=== PATIENT | female | born 1995 | race Caucasian/White ===

== ENCOUNTER 2019-08-08 03:37 | Emergency (ER) | payer OTHER, SELFPAY ==
[2019-08-08 03:41] VITALS: BP 124/78; PULSE 120; RESP 16; TEMP 36.3; O2SAT 100
--- NOTE | 2019-08-08 03:56 | ED.ABDPAIN ---
HPI - Abdominal Pain General Chief Complaint: Abdominal Pain Stated Complaint: n/v/d for 2 hours Time Seen by Provider: 08/08/19 03:48 Source: patient Mode of arrival: ambulatory Limitations: no limitations History of Present Illness HPI narrative: 23 yo female who presents with c/o nausea, vomiting and diarrhea . PAtient reports she has had intermittent epigastric pain for 1 week. She states this pain radiates to her back occasionally as well. She has not taken any thing for this pain. She has come to [facility] because she develop nausea, vomiting and diarrhea 2 hours ago and she feels dehydrated. She reports 10 episodes of watery nonbloody diarrhea. She has not had any episodes of emesis for the past hour. She drank some pedialyte on the way to hospital and she has been able to keep it down. MD elicited complaint: abdominal pain Onset (ago): week(s) Pain Consistency: intermittent Location: epigastric Migration to: other (back) Exacerbating factors: nothing Associated symptoms: nausea, vomiting and diarrhea Related Data Date of Last Menstrual Period: 08/03/19 Allergies Allergy/AdvReac Type Severity Reaction Status Date / Time No Known Allergies Allergy Mild Unverified 11/01/18 15:31 Review of Systems Review of Systems: All systems reviewed & are unremarkable except as noted in HPI and below Constitutional: Constitutional: Denies chills, Denies fever(s) and Reports weakness ENT: Denies nasal congestion and Denies sore throat Cardiovascular: Cardiovascular: Denies chest pain Respiratory: Respiratory: Denies chest congestion, Denies cough and Denies dyspnea Gastrointestinal: Gastrointestinal: Reports abdominal pain, Reports diarrhea, Reports nausea and Reports vomiting Genitourinary: Genitourinary: Denies hematuria PMFSH Past Medical History Medical History (Updated 08/08/19 @ 05:32 by Clair Pollard MD) No significant medical problems Surgical History Surgical History (Updated 08/08/19 @ 04:00 by Clair Pollard MD) History of tonsillectomy Social History Social History (Updated 08/08/19 @ 04:00 by Clair Pollard MD) Smoking status: Never smoker Alcohol intake: former Substance use: never Exam Narrative: Exam Narrative: GENERAL: Well-appearing, well-nourished, and in no acute distress. HEAD: Normocephalic, atraumatic EYES: PERRLA and EOMI, conjunctiva clear without discharge THROAT:Mucous membranes moist, Oropharynx normal without erythema, exudate, peritonsillar swelling or fluctuance NECK: Supple, without lymphadenopathy or mass RESPIRATORY: No respiratory distress, Airway patent, Respirations non-labored, Clear to auscultation without rales, rhonchi or wheeze HEART: Regular rate and rhythm. No murmur heard. Normal peripheral pulses. ABDOMEN: Soft, nontender, nondistended, normal active bowel sounds. No masses. No rebound or guarding, No organomegaly. EXTREMITIES: No edema, normal strength with full range of motion. SKIN: Warm, dry, normal color without rash NEURO: Alert and oriented x3. CN 2-12 grossly intact. No focal deficits. PSYCH: Normal mood and affect. Course Reevaluation(s) Reevaluation #1: PAtient states she feels better. she has no nausea or vomiting. Labs are unremarkable. She was able to tolerate PO. Date: 08/08/19 Time: 05:29 Vital Signs Vital signs: Vital Signs Temperature 97.3 F L 08/08/19 03:41 Pulse Rate 120 H 08/08/19 03:41 Respiratory Rate 16 08/08/19 03:41 Blood Pressure 124/78 08/08/19 03:41 Pulse Oximetry 100 08/08/19 03:41 Temperature 97.3 F L 08/08/19 03:41 Pulse Rate 71 08/08/19 05:48 Respiratory Rate 17 08/08/19 05:48 Blood Pressure 123/70 08/08/19 05:48 Pulse Oximetry 98 08/08/19 05:48 MDM - Abdominal Pain Lab Data Result diagrams: 08/08/19 04:01 08/08/19 04:01 Labs: Lab Results 08/08/19 08/08/19 08/08/19 Range/Units 04:01 04:01 04:23 WBC 9.6
[2019-08-08 04:10] LABS: Basophils Percent Auto 0.2 % (0.2-1.2); Eosinophils Percent Auto 0.3 % (0-4.4); Hematocrit 44.5 % (37.0-47.0); Hemoglobin 15.9 g/dL (12.0-15.0); Immature Granulocyte Absolute 0.02 K/mm3 (0.00-0.031); Immature Granulocyte Percent A 0.2 % (0-0.5); Lymphocytes Absolute Auto 0.44 K/mm3 (0.9-3.2); Lymphocytes Percent Auto 4.6 % (18.3-44.2); Mean Corpuscular HGB Conc 35.7 g/dl (32-36); Mean Corpuscular Hemoglobin 33.1 pg (26-34); Mean Corpuscular Volume 92.5 fl (80-100); Mean Platelet Volume 11.8 fl (7.4-10.4); Monocytes Absolute Auto 0.5 K/mm3 (0.1-0.6); Neutrophils Absolute Auto 8.6 K/mm3 (1.3-6.7); Neutrophils Percent Auto 89.7 % (45.5-73.1); Platelet Count Result 212 k/mm3 (150-375); Red Blood Count 4.81 M/mm3 (4.2-5.4); Red Cell Distribution Width 11.3 % (11.5-14.5); White Blood Count 9.6 K/mm3 (4.5-10.0)
[2019-08-08 04:20] LABS: Alanine Aminotransferase 9 U/L (4-35); Alkaline Phosphatase 51 U/L (38-126); Aspartate Amino Transferase 19 U/L (14-36); Blood Urea Nitrogen 16 mg/dL (7-17); Calcium 9.7 mg/dL (8.4-10.2); Carbon Dioxide 28 mmol/L (22-30); Chloride 103 mmol/L (98-107); Estimated Glomerular Filt Rate > 60; Glucose 120 mg/dL (65-105); Lipase 92 U/L (23-300); Potassium 3.7 mmol/L (3.4-5.0); Sodium 138 mmol/L (137-145)
[2019-08-08] MEDS: PANTOPRAZOLE SODIUM IV 40 MG VIAL IV PUSH (04:24)
[2019-08-08] MEDS: ONDANSETRON INJ 4 MG/2 ML VIAL IV PUSH (04:24)
[2019-08-08] MEDS: LACTATED RINGERS 1,000 ML 999 ML IV CONT ×2 (04:24)
[2019-08-08 04:37] LABS: Add Urine Microscopic? YES; Appearance Urine Cloudy (Clear); Bacteria Urine Trace /hpf; Bilirubin Urine Negative (Negative); Blood Urine 1+ (Negative); Color Urine Yellow (Yellow); Glucose Urine UA Negative (Negative); Ketones Urine Trace mg/dL (Negative); Leukocyte Esterase Ur 2+ LEU/UL (Negative); Mucus Urine Heavy /lpf; Nitrate Urine Negative (Negative); Protein Urine 1+ mg/dL (Negative); Squamous Epithelial Cell Urine Many /hpf (Few); Urobilinogen Urine Negative mg/dL (<2.0)
[2019-08-08 05:03] LABS: Specific Grav Ur 1.032 (1.001-1.035)
[2019-08-08 05:48] VITALS: BP 123/70; PULSE 71; RESP 17; O2SAT 98
== END 2019-08-08 05:50 | disposition home or self-care (01) ==
PROVIDERS: Emergency Provider General Practice
DX: K52.9 Noninfective gastroenteritis and colitis, unspecified (principal); E86.0 Dehydration
CPT/HCPCS: 36415; 80053; 81001; 81025; 83690; 85025; 87086; 87088; 96361; 96374; 96375; 99284; C9113; J2405; J7120

== ENCOUNTER 2020-03-09 04:24 | Emergency (ER) | payer OTHER, SELFPAY ==
[2020-03-09 04:28] VITALS: BP 122/69; PULSE 93; RESP 14; TEMP 37; O2SAT 100
[2020-03-09 04:53] LABS: Basophils Percent Auto 0.3 % (0.2-1.2); Eosinophils Percent Auto 0.3 % (0-4.4); Hematocrit 41.9 % (37.0-47.0); Hemoglobin 15.4 g/dL (12.0-15.0); Immature Granulocyte Absolute 0.01 K/mm3 (0.00-0.031); Immature Granulocyte Percent A 0.2 % (0-0.5); Lymphocytes Percent Auto 26.2 % (18.3-44.2); Mean Corpuscular HGB Conc 36.8 g/dl (32-36); Mean Corpuscular Volume 92.5 fl (80-100); Monocytes Absolute Auto 0.6 K/mm3 (0.1-0.6); Monocytes Percent Auto 9.6 % (2.6-8.5); Neutrophils Absolute Auto 4.1 K/mm3 (1.3-6.7); Neutrophils Percent Auto 63.4 % (45.5-73.1); Platelet Count Result 216 k/mm3 (150-375); Red Blood Count 4.53 M/mm3 (4.2-5.4); Red Cell Distribution Width 11.1 % (11.5-14.5); White Blood Count 6.5 K/mm3 (4.5-10.0)
--- NOTE | 2020-03-09 04:53 | ED.NAVMDI ---
HPI - Nausea/Vomiting/Diarrhea General Chief complaint: Nausea/Vomiting/Diarrhea Stated complaint: threw up black Time Seen by Provider: 03/09/20 04:36 History of Present Illness HPI Narrative: 24 yo female at approximately 6 weeks gestation presents to the ED for vomiting and diarrhea. She reports that she has been sufferig from morning sickness for the past few days. Tonight she became cncerned because her vomiting was black. She does admit to drinking grape gatorade prior to vomiting. No weakness, numness, abdominal pain, vaginal bleeding/discharge. Related Data Allergies Allergy/AdvReac Type Severity Reaction Status Date / Time No Known Allergies Allergy Mild Verified 03/09/20 04:34 Review of Systems Review of Systems: All systems reviewed & are unremarkable except as noted in HPI and below Constitutional: Constitutional: Denies chills and Denies fever(s) Cardiovascular: Cardiovascular: Denies chest pain Respiratory: Respiratory: Denies dyspnea Gastrointestinal: Gastrointestinal: Denies abdominal pain, Reports diarrhea, Reports nausea and Reports vomiting Genitourinary: Genitourinary: Denies abnormal vaginal bleeding, Denies hematuria, Denies dysuria and Denies vaginal discharge Neurologic: Reports dizziness, Denies syncope and Denies weakness PMFSH Past Medical History Medical History No significant medical problems Surgical History Surgical History History of tonsillectomy Social History Social History Smoking status: Never smoker Alcohol intake: former Substance use: never Exam Const: General: healthy appearing, no acute distress and alert Orientation/consciousness: patient oriented x3 HENMT: Mouth: Yes dry mucous membranes Neck: Neck: normal visual inspection and no lymphadenopathy Chest: Chest palpation & inspection: no tenderness Resp: Effort & Inspection: normal respiratory effort Auscultation: clear to auscultation bilaterally, no rales, no rhonchi and no wheezes Cardio: Jugular venous distension: no JVD Rate: regular rate Rhythm: regular rhythm Heart sounds: no murmurs GI: Inspection: non-distended GI Palp: Yes Soft to palpation and No Tenderness to palpation present (GI) Skin: General skin exam: normal color Neuro: General: patient oriented x3 and moves all extremities Speech: normal speech Extrem: General: no edema Psych: Appearance: well kempt Affect: normal affect Course Vital Signs Vital signs: Vital Signs Temperature 37.0 C 03/09/20 04:28 Pulse Rate 93 03/09/20 04:28 Respiratory Rate 14 03/09/20 04:28 Blood Pressure 122/69 03/09/20 04:28 Pulse Oximetry 100 03/09/20 04:28 Temperature 37.0 C 03/09/20 04:28 Pulse Rate 93 03/09/20 04:28 Respiratory Rate 14 03/09/20 04:28 Blood Pressure 122/69 03/09/20 04:28 Pulse Oximetry 100 03/09/20 04:28 MDM - Nausea/Vomiting/Diarrhea MDM Narrative Medical decision making narrative: Feeling better after fluids. Labs reassuring. Tolerating PO. Medical Records Attestation: I reviewed the patient's medical records. Lab Data Attestation: I reviewed the patient's lab results. Result diagrams: 03/09/20 04:46 03/09/20 04:46 Labs: Lab Results 03/09/20 03/09/20 03/09/20 Range/Units 04:46 04:46 04:46 WBC 6.5 (4.5-10.0) K/mm3 RBC 4.53 (4.2-5.4) M/mm3 Hgb 15.4 H (12.0-15.0) g/dL Hct 41.9 (37.0-47.0) % MCV 92.5 (80-100) fl MCH 34.0 (26-34) pg MCHC 36.8 H (32-36) g/dl RDW 11.1 L (11.5-14.5) % Plt Count 216 (150-375) k/mm3 MPV 11.0 H (7.4-10.4) fl Immature Gran % (Auto) 0.2 (0-0.5) % Neut % (Auto) 63.4 (45.5-73.1) % Lymph % (Auto) 26.2 (18.3-44.2) % [place] % (Auto) 9.6 H (2.6-8.5) % Eos % (Auto) 0.3 (0-4.4)
[2020-03-09] MEDS: DEXTROSE 5%/0.45% SOD CHL 1,000 ML 1000 ML IV CONT (05:00)
[2020-03-09 05:01] LABS: Add Urine Microscopic? YES; Appearance Urine Cloudy (Clear); Bilirubin Urine Negative (Negative); Blood Urine Negative (Negative); Color Urine Yellow (Yellow); Glucose Urine UA Negative (Negative); Ketones Urine 1+ mg/dL (Negative); Leukocyte Esterase Ur Trace LEU/UL (Negative); Mucus Urine Heavy /lpf; Nitrate Urine Negative (Negative); Protein Urine 1+ mg/dL (Negative); Specific Grav Ur 1.025 (1.001-1.035); Squamous Epithelial Cell Urine Many /hpf (Few); Urobilinogen Urine Negative mg/dL (<2.0)
[2020-03-09] MEDS: METOCLOPRAMIDE HCL INJ 10 MG/2 ML VIAL IV PUSH (05:01)
[2020-03-09 05:07] LABS: Alanine Aminotransferase 10 U/L (4-35); Alkaline Phosphatase 46 U/L (38-126); Anion Gap 12 mmol/L (8-16); Aspartate Amino Transferase 21 U/L (14-36); Bilirubin,Total 1.1 mg/dL (0.2-1.3); Blood Urea Nitrogen 7 mg/dL (7-17); Calcium 9.7 mg/dL (8.4-10.2); Carbon Dioxide 25 mmol/L (22-30); Chloride 100 mmol/L (98-107); Estimated CRCL calculation 102 ml/min; Estimated Glomerular Filt Rate > 60; Glucose 110 mg/dL (65-105); Potassium 3.8 mmol/L (3.4-5.0); Sodium 137 mmol/L (137-145)
[2020-03-09 06:13] VITALS: BP 123/64; PULSE 84; RESP 16; TEMP 36.7; O2SAT 100
== END 2020-03-09 06:14 | disposition home or self-care (01) ==
PROVIDERS: Emergency Provider Emergency Medicine
DX: O21.9 Vomiting of pregnancy, unspecified (principal); Z3A.01 Less than 8 weeks gestation of pregnancy
CPT/HCPCS: 36415; 80053; 81001; 85025; 96361; 96374; 99284; J2765

== ENCOUNTER 2020-10-08 11:05 | Outpatient (RCR) | payer OTHER, SELFPAY ==
[2020-09-11 10:28] VITALS: BP 105/66
[2020-09-17 10:33] LABS: Glucose Point of Care 108 (65-105)
[2020-09-17 11:11] VITALS: BP 99/67; PULSE 104
[2020-09-20 11:19] VITALS: BP 102/68; PULSE 108
[2020-09-24 13:03] VITALS: BP 106/71; PULSE 104
[2020-10-01 11:16] VITALS: BP 109/72; PULSE 90
--- NOTE | ~2020-10-08 | US_ITS ---
US OB BPP wo non-stress DATE: 09/04/2020 11:22 INDICATION: Gestational diabetes mellitus TECHNIQUE: Real-time imaging and Doppler analysis COMPARISON: None FINDINGS: Live palmer intrauterine gestation, fetus in longitudinal lie, vertex presentation. Feta l heart rate of 144 bpm. Anterior placenta. Subjectively normal amount of amniotic fluid. Amniotic fluid pocket a 3.1 cm is identified. Three-ves nitish umbilical cord. BIOPHYSICAL PROFILE reported by emergency room technician: breathin out of 2 movement: 2 out of 2 tone: 2 out of 2 Amniotic fluid pocket: 2 out of 2 Total score: 8 out of 8 IMPRESSION: Normal biophysical profile score of 8 out of 8 Reviewed, dictated and finalized at [facility]. Reviewed, dictated and finalized at location [facility].
--- NOTE | ~2020-10-08 | US_ITS ---
EXAMINATION: US OB BPP wo non-stress DATE: 09/17/2020 10:59 INDICATION: Gestational diabetes third trimester TECHNIQUE: Real-time pelvic ultrasound was performed. The interpreting radiologist was not present fo r the study. COMPARISON: 09/04/2020 FINDINGS: There is a single living fetus in vertex presentation. The placenta is anterior/fundal. heart r ate is 157 beats per minute (bpm). Biophysical profile performed by the technologist: breathing (30 sec sustained breathing in 30 minutes): 2 out of 2 movement (3 gross body movements in 30 minutes): 2 out of 2 tone (one episode of fqqlcez-kehabutbv-tzmhtje limb movement): 2 out of 2 Amniotic fluid pocket (2 cm): 2 out of 2 Total score: 8 out of 8 IMPRESSION: 1. Single living fetus in vertex presentation. 2. Biophysical profile 8 out of 8. Reviewed, dictated and finalized at location [facility].
[2020-10-08 11:42] VITALS: BP 107/66; PULSE 106
== END 2020-10-24 07:43 | disposition home or self-care (01) ==
LOC: ANHOBOP 11:05
PROVIDERS: Visit Provider Obstetrics & Gynecology
DX: O24.419 Gestational diabetes mellitus in pregnancy, unspecified control (principal); Z3A.33 33 weeks gestation of pregnancy; Z3A.34 34 weeks gestation of pregnancy; Z3A.35 35 weeks gestation of pregnancy; Z3A.36 36 weeks gestation of pregnancy; Z3A.37 37 weeks gestation of pregnancy; Z3A.38 38 weeks gestation of pregnancy
CPT/HCPCS: 59025; 76819; 82948

== ENCOUNTER 2020-10-22 06:29 | Inpatient (IN) | payer OTHER, SELFPAY ==
[2020-10-22] VITALS (109 sets, daily range): BP systolic 37–148; BP diastolic 24–119; PULSE 54–203; RESP 17; TEMP 36.3–37.1; O2SAT 100; BMI 30.4
[2020-10-22 07:17] LABS: Glucose Point of Care 108 mg/dl (65-105)
[2020-10-22] MEDS: OXYTOCIN 30 UNITS/NS 500 ML 30 UNITS/500 ML BAG IV CONT (07:22)
[2020-10-22] MEDS: LACTATED RINGERS 1,000 ML 125 ML IV CONT ×3 (07:22→15:47)
[2020-10-22 07:39] LABS: Basophils Percent Auto 0.2 % (0.2-1.2); Eosinophils Percent Auto 0.6 % (0-4.4); Hematocrit 32.6 % (37.0-47.0); Hemoglobin 10.9 g/dL (12.0-15.0); Immature Granulocyte Absolute 0.05 K/mm3 (0.00-0.031); Immature Granulocyte Percent A 0.8 % (0-0.5); Lymphocytes Absolute Auto 1.25 K/mm3 (0.9-3.2); Lymphocytes Percent Auto 19.1 % (18.3-44.2); Mean Corpuscular HGB Conc 33.4 g/dl (32-36); Mean Corpuscular Hemoglobin 30.5 pg (26-34); Mean Corpuscular Volume 91.3 fl (80-100); Mean Platelet Volume 10.9 fl (7.4-10.4); Monocytes Absolute Auto 0.7 K/mm3 (0.1-0.6); Monocytes Percent Auto 10.1 % (2.6-8.5); Neutrophils Absolute Auto 4.6 K/mm3 (1.3-6.7); Neutrophils Percent Auto 69.2 % (45.5-73.1); Platelet Count Result 166 k/mm3 (150-375); Red Blood Count 3.57 M/mm3 (4.2-5.4); Red Cell Distribution Width 12.9 % (11.5-14.5); White Blood Count 6.6 K/mm3 (4.5-10.0)
--- NOTE | 2020-10-22 07:55 | LDADM ---
This patient, Melani Newman, was admitted to Labor/Delivery/Recovery 103 on 10/22/20 at 06:29. Plans for labor, pain management and were discussed with patient. Patient/family oriented to hospital policies and general routines including ID bracelet, bed and alarms, visiting hours, pain management, procedures, bathroom and other care routines, personal items, smoking policy, room service/diet and guest tray routines, security routines, and visiting hours. Patient/Family are encouraged to report perceived risks to care and to ask questions if they do not understand what they are told or what they should do. See OBIX for further documentation.
[2020-10-22 11:01] LABS: Glucose Point of Care 73 mg/dl (65-105)
--- NOTE | 2020-10-22 11:31 | PM.IMHP ---
H&P: HPI History of Present Illness Date/Time: 10/22/20 11:31 Melani is a 25yo @ 39.2wks (JULIA [birth year]) who presents for IOL. She has gestational diabetes on insulin. She has been undergoing routine care. Good movement. She denies ctx, VB, LOF on admission. Her is complicated by: - A2 GDM on insulin - LGA fetus; EFW 4000g - CMV non-immune Chief Complaint: induction of labor Review of Systems Review of Systems: All systems reviewed & are unremarkable except as noted in HPI and below (HPI) [facility] Past Medical History Medical History No significant medical problems Surgical History Surgical History History of tonsillectomy Family History Family History Other No pertinent family history Social History Social History Smoking status: Never smoker Second hand tobacco smoke exposure: Yes Alcohol intake: former Substance use: never Gender identity (if verbalized by the patient): Female Spiritual care concerns: No Meds Home Medications and Allergies Home Medications Medication Instructions Recorded Confirmed Type PNV cmb#95-ferrous fumarate-FA 1 tablet PO DAILY 09/24/20 09/24/20 History [] insulin glargine [Lantus Solostar 15 unit SUBCUT HS 09/24/20 09/24/20 History U-100 Insulin] Allergies Allergy/AdvReac Type Severity Reaction Status Date / Time No Known Allergies Allergy Mild Verified 03/09/20 04:34 Vital Signs Vital Signs - 24 hr 10/22/20 07:27 10/22/20 08:05 10/22/20 08:16 Temperature 36.6 C Pulse Rate 69 73 Blood Pressure 104/72 109/76 10/22/20 08:31 10/22/20 08:46 10/22/20 09:01 Temperature Pulse Rate 76 90 82 Blood Pressure 107/74 107/79 111/74 10/22/20 09:16 10/22/20 09:31 10/22/20 09:46 Temperature Pulse Rate 76 77 81 Blood Pressure 107/74 111/74 112/71 10/22/20 10:01 10/22/20 10:16 10/22/20 10:30 Temperature 36.6 C Pulse Rate 93 82 Blood Pressure 118/72 117/73 10/22/20 10:31 10/22/20 10:46 10/22/20 11:01 Temperature Pulse Rate 80 84 88 Blood Pressure 116/72 117/80 98/85 L 10/22/20 11:16 10/22/20 11:31 Temperature Pulse Rate 82 82 Blood Pressure 105/73 107/74 Exam Const: General: cooperative, healthy appearing, comfortable and no acute distress Resp: Effort & Inspection: normal respiratory effort and able to speak in complete sentences Cardio: Rate: regular rate GI: Inspection: normal to inspection GI Palp: No abdominal tenderness and Yes Soft to palpation : Other: FHT's: 140's/ mod reva/ + accels no decels TOCO: ctx's q 2min Cervix: 3/thick/-2 Membranes: AROM, clear 1145 Pitocin: 14mu Position: cephalic Skin: General skin exam: normal color Neuro: General: patient oriented x3 Extrem: General: normal to inspection Psych: Appearance: grossly normal Affect: normal affect Attitude: cooperative H&P: Results Labs Labs: Short CBC 10/22/20 Range/Units 06:49 WBC 6.6 (4.5-10.0) K/mm3 Hgb 10.9 L D (12.0-15.0) g/dL Hct 32.6 L (37.0-47.0) % Plt Count 166 (150-375) k/mm3 Assessment and Plan Assessment and plan (1) Gestational diabetes mellitus (GDM) affecting second : Code(s): O24.419 - Gestational diabetes mellitus in , unspecified control Status: Acute Additional Plan - Admitted to L&D for IOL - Pitocin per protocol; AROM, clear this exam - Continuous monitoring; FHT reassuring currently - EFW 4000g; pt has h/o 9lb w/ prior baby without complications-- discussed possibility of shoulder dystocia as US are not 100% correct-- will continue to monitor labor curve closely - Anesthesia consult PRN pain - FS q4h while in latent phase; FS q2h while in active labor
--- NOTE | 2020-10-22 11:54 | WPDHPUPDATE1 ---
History and Physical Update Update Date/Time: 10/22/20 11:54 History and Physical has been reviewed, including an updated exam of the patient. There are NO changes in the patient's condition. Risks, benefits, and alternatives have been discussed and questions answered. Patient agrees to proceed with procedure.
--- NOTE | 2020-10-22 13:04 | WPDANESEPP ---
Anes - Eval Pre Procedure Procedure: labor epidural Date/Time: 10/22/20 13:04 Preop Diagnosis: labor pain Pre Op Diagnosis: Induction of Labor Patient Data Age: 25 Gender: F Height: 5 ft 3 in Weight: 78 kg Last Vital Signs Temp 36.8 C 10/22/20 12:35 Pulse 88 10/22/20 13:02 BP 105/63 10/22/20 13:02 Allergies Allergy/AdvReac Type Severity Reaction Status Date / Time No Known Allergies Allergy Mild Verified 03/09/20 04:34 Home Medications Medication Instructions Recorded Confirmed Type PNV cmb#95-ferrous fumarate-FA 1 tablet PO DAILY 09/24/20 09/24/20 History [] insulin glargine [Lantus Solostar 15 unit SUBCUT HS 09/24/20 09/24/20 History U-100 Insulin] Laboratory Tests 10/22/20 10/22/20 10/22/20 06:49 06:49 06:49 WBC 6.6 K/mm3 K/mm3 (4.5-10.0) RBC 3.57 M/mm3 L M/mm3 (4.2-5.4) Hgb 10.9 g/dL L D g/dL (12.0-15.0) Hct 32.6 % L % (37.0-47.0) MCV 91.3 fl fl (80-100) MCH 30.5 pg pg (26-34) MCHC 33.4 g/dl g/dl (32-36) RDW 12.9 % % (11.5-14.5) Plt Count 166 k/mm3 k/mm3 (150-375) MPV 10.9 fl H fl (7.4-10.4) Immature Gran % (Auto) 0.8 % H % (0-0.5) Neut % (Auto) 69.2 % % (45.5-73.1) Lymph % (Auto) 19.1 % % (18.3-44.2) [place] % (Auto) 10.1 % H % (2.6-8.5) Eos % (Auto) 0.6 % % (0-4.4) Baso % (Auto) 0.2 % % (0.2-1.2) Lymph # (Auto) 1.25 K/mm3 K/mm3 (0.9-3.2) [place] # (Auto) 0.7 K/mm3 H K/mm3 (0.1-0.6) Eos # (Auto) 0.0 K/mm3 K/mm3 (0-0.3) Baso # (Auto) 0.0 K/mm3 K/mm3 (0.0-0.1) Abs Immat Gran (auto) 0.05 K/mm3 H K/mm3 (0.00-0.031) Absolute Neuts (auto) 4.6 K/mm3 K/mm3 (1.3-6.7) Absolute Nucleated RBC 0.0 K/mm3 K/mm3 (0.0-0.012) Nucleated RBC % 0.0 % % (0.0-0.2) POC Capillary Glucose RPR Pending Blood Type B Positive Antibody Screen Negative 10/22/20 10/22/20 07:09 11:00 WBC RBC Hgb Hct MCV MCH MCHC RDW Plt Count MPV Immature Gran % (Auto) Neut % (Auto) Lymph % (Auto) [place] % (Auto) Eos % (Auto) Baso % (Auto) Lymph # (Auto) [place] # (Auto) Eos # (Auto) Baso # (Auto) Abs Immat Gran (auto) Absolute Neuts (auto) Absolute Nucleated RBC Nucleated RBC % POC Capillary Glucose 108 mg/dl H mg/dl 73 mg/dl mg/dl (65-105) (65-105) RPR Blood Type Antibody Screen Patient hx anesthesia problems: none Family hx anesthesia problems: none PMFSH Past Medical History Medical History No significant medical problems Surgical History Surgical History History of tonsillectomy Family History Family History Other No pertinent family history Social History Social History Smoking status: Never smoker Second hand tobacco smoke exposure: Yes Alcohol intake: former Substance use: never Gender identity (if verbalized by the patient): Female Spiritual care concerns: No Exam Day of Procedure 10/22/20 13:04
[2020-10-22] MEDS: PHENYLEPHRINE 1,000 MCG/10 ML SYRINGE 100 MCG IV PUSH (14:43)
--- NOTE | 2020-10-22 16:30 | P.PNOB_ITS ---
Pain Control Date/time seen: 10/22/20 16:30 Pain control: epidural Pelvic Exam Dilation (cm): 4 (.5) Effacement (%): 80 station: -2 Amniotic membrane status: Ruptured (AROM, clear 1145) Contractions Monitor mode: External Contraction frequency: 2 (-3) Contraction pattern: Regular Status status: Category ll Comments: Combined spinal epidural occurred; baby had prolonged decels/v ariables/couple lates w/ the hypotension-- intrauterine resuscitation occurred and pitocin was held; baby now reassuring Assessment and Plan Pitocin rate (mU/min): 12 Assessment: induction ongoing Plan: continuous present management
[2020-10-22 17:13] LABS: Glucose Point of Care 62 mg/dl (65-105)
[2020-10-22 17:13] LABS: Glucose Point of Care 89 mg/dl (65-105)
--- NOTE | 2020-10-22 18:09 | PM.OBPRVD ---
OB - Delivery Note Procedure Delivery date: 10/22/20 events: Gestational Diabetes (A2GDM) and Labor Induction Intrapartal events: Precipitous Labor < 3 hours Induction method: per pitocin protocol Delivery augmentation: rupture of membranes Delivery monitor: external FHT and external uterine Route of delivery: Laceration Description: Perineal - 2nd Degree Delivery repair: vicryl Quantitative Blood Loss (ml): 250 Anesthesia type: Epidural (and local) Disposition: floor [place] Baby Date of : 10/22/20 Time of : 17:46 Weeks of gestation at delivery: 39 (.2) Infant gender: Female Weight (pounds): 8 Weight (ounces): 0 presentation: vertex position: Right Occiput Transverse Placenta delivery description: Expressed cord vessel description: 3 Vessels score one minute: 9 score five minutes: 9 Narrative: Melani rapidly progressed from 4.5 to complete dilation within approximately one hour. She had strong desire to push as her epidural was no longer working. After 2 pushes she delivered the head over intact perineum. She then easily delivered the shoulders and body without complications. The had spontaneous cry and was immediately placed skin to skin on mom. Delayed cord clamping was performed. The cord was then clamped and cut. A segment of the cord was collected for cord gases. The remaining cord blood was collected for typing. With Pitocin running and gentle downward traction on the cord, the placenta delivered without complications. Good fundal tone and minimal bleeding were noted. The vagina and perineum were examined and a second-degree perineal laceration was noted. Lidocaine was injected locally for better anesthesia. The second-degree perineal laceration was repaired in the normal fashion using 2 0 Vicryl. Minimal bleeding was noted and the fundus remained firm. Sponge, lap, instrument, and needle counts were correct at the end of the procedure. Mom and baby were left bonding in the birthing suite in a stable condition.
[2020-10-22] MEDS: OXYTOCIN 30 UNITS/NS 500 ML 30 UNITS/500 ML BAG 125 UNITS IV CONT (18:27)
--- NOTE | 2020-10-22 19:51 | PM.EVENT ---
Event Note Event Note Event Note: Known spinal catheter removed. Tip intact. Site clean and dry w/o erythema. Sitting up in bed comfortably as informed of potential for PDPH. Cosyntropin 1 mg given at 1943 slow IVP for prophylaxis w/ no discomfort at IV site.
[2020-10-22] MEDS: WITCH HAZEL 40 PADS 1 PAD TOPICAL (20:22)
[2020-10-22] MEDS: BENZOCAINE 20% AER SPR (*SP) 56 GM CAN 1 SPRAY TOPICAL (20:22)
[2020-10-22] MEDS: IBUPROFEN 600 MG TABLET PO (20:23)
--- NOTE | 2020-10-22 20:40 | OBPPTRN ---
Patient transferred to post room #285 via wheelchair with in crib. Support person present. Oriented to unit, room, information board, rooming in, admission packet and security measures. Patient verbalizes understanding.
[2020-10-23 00:20] VITALS: BP 102/74; PULSE 80; RESP 16; TEMP 36.9
[2020-10-23] MEDS: IBUPROFEN 600 MG TABLET PO ×2 (04:20→16:44)
[2020-10-23 04:40] VITALS: BP 104/72; PULSE 70; RESP 17; TEMP 36.8
[2020-10-23 06:26] LABS: Hematocrit 28.9 % (37.0-47.0); Hemoglobin 9.9 g/dL (12.0-15.0)
[2020-10-23 08:20] VITALS: BP 104/57; PULSE 70; RESP 16; TEMP 37.1; O2SAT 99
[2020-10-23 10:09] LABS: Rapid Plasma Reagin Non-Reactive (NonReactive)
--- NOTE | 2020-10-23 10:40 | PC.NURSE ---
Consult with pt., mother reports she is switching to bottle feeding due to pain medication. Reviewed the medications she is taking is compatible with . Mother states her goal was to breast and bottle feed as she is concerned is not getting enough. Reviewed frequencies, duration of feedings, feeding elimination flow sheet, and signs of adequate intake. Reviewed stimulation and milk supply. Suggested put infant to breast each feeding then supplement 20 mls until her milk supply is established. Mother states she will consider and call out for assist next feeding.
--- NOTE | 2020-10-23 10:54 | WPDANLDPN2 ---
Anes-Prog Note L&D Date/Time: 10/23/20 10:54 Comfortable throughout: labor Neuraxial method: epidural Epidural/Spinal procedure site: clean & non-tender Neuro status: Neuro function grossly intact. Cardiovascular status: normal Respiratory status: normal Airway patency: baseline Mental status: baseline Post-Op hydration status: normal Vital Signs: Last Vital Signs Temp 37.1 C 10/23/20 08:20 Pulse 70 10/23/20 08:20 Resp 16 10/23/20 08:20 BP 104/57 L 10/23/20 08:20 Pulse Ox 99 10/23/20 08:20 Pain score (VAS): 7/10 on self reported pain scale. Patient described pain of 7/10 localized at epidural site. Discussed at length prn pain medications for pain relief. Instructed patient to contact anesthesia department if pain increases or persists for several days. Support person at bedside. All questions and concerns answered at time of assessment. Epidural site remains clean without redness or bruising. Post-procedural complaints: none Patient feedback: Patient satisfied with anesthetic care.
[2020-10-23] MEDS: HYDROcodone/acetaminophen (*CRX) 5-325 MG TABLET 1 TAB PO ×2 (11:00→16:58)
[2020-10-23] MEDS: DOCUSATE SODIUM 100 MG CAPSULE PO ×2 (11:01→16:44)
[2020-10-23] MEDS: MULTIVIT/MIN/PREN/FOL AC/IRON TABLET 1 TAB PO (11:01)
[2020-10-23] MEDS: POLYSACCHARIDE IRON COMPLEX 150 MG CAPSULE PO ×2 (11:01→16:44)
[2020-10-23 11:55] VITALS: BP 111/81; PULSE 78; RESP 18; TEMP 37; O2SAT 99
--- NOTE | 2020-10-23 12:46 | PM.OBPNVD ---
OB - PN: Subj Subjective Date/time seen: 10/23/20 12:46 PPD#1 Melani reports doing well today; would like to go home.. She reports her pain is controlled w/ PO meds. She states her bleeding is light. She has tolerated regular diet w/o issue. She has voided and passed gas. She has ambulated w/o s/sx of anemia. She is breast and bottle feeding. She denies CP, SOB, JAFFE, vision changes, fever, chills, N/V, palpitations or diszziness. OB - PN: Obj Data Labs CBC & Chem 7: 10/23/20 06:17 Labs: Laboratory Results - last 24 hr 10/22/20 10/22/20 10/22/20 06:49 15:55 17:10 Hgb Hct POC Capillary Glucose 62 L 89 RPR Non-reactive 10/23/20 06:17 Hgb 9.9 L Hct 28.9 L POC Capillary Glucose RPR OB - PN A/P Assessment and Plan (1) Status post vaginal delivery: Status: Acute Plan day: 1 Plan: routine care and discharge home (this evening) Comments: - Pelvic rest; take meds as prescribed - f/u in 4 wks; 2hr glucose @ 6wks - ER return precautions discussed: bleeding, HTN, n/v/abd pain, fever Time Spent With Patient Time: Total time spent is greater than 50% in coordination of care (as documented) at patient's floor/unit and/or counseling patient: Review of Systems Review of Systems: All systems reviewed & are unremarkable except as noted in HPI and below (HPI) Exam Const: General: cooperative, healthy appearing, comfortable and no acute distress Resp: Effort & Inspection: normal respiratory effort and able to speak in complete sentences Auscultation: clear to auscultation bilaterally Cardio: Rate: regular rate GI: Inspection: non-distended GI Palp: No abdominal tenderness and Yes Soft to palpation Auscultation: normal bowel sounds : Other: fundus firm below umbilicus Skin: General skin exam: normal color Neuro: General: patient oriented x3 Extrem: General: normal to inspection Psych: Appearance: grossly normal Affect: normal affect Attitude: cooperative
[2020-10-23 16:45] VITALS: BP 101/59; PULSE 73; RESP 16; TEMP 37.2; O2SAT 98
--- NOTE | 2020-10-23 16:45 | PC.NURSE ---
Mother called out for assist with feeding. Mother states she attempted last feeding and now has a slight blister to left breast. Reviewed infant feeding cues, frequencies, duration of feedings, feeding elimination flow sheet, and signs of adequate intake. Demonstrated stimulation techniques to wake infant for feeding. Assisted with infant to breast. Reviewed positioning/alignment in cross cradle, holding breast in ?U? hold and guided asymmetrical latch on. able to latch correctly. nursed eagerly, with steady draws and frequent swallowing noted. Reviewed signs of a correct latch, effective nursing and suck swallow ratio. would slip to shallow latch, mother reports tenderness. Demonstrated how to adjust latch more deeply while feeding. Mother reports she can feel change in latch and has no tenderness. Nipple care reviewed of lanolin after feedings, warm compresses as needed. Suggested mother stimulate while feeding to increase stimulate, increase intake and to assist with maintaining deep latch. Instructed feeding should be initiated three hours from start of last feeding or if feeding cues are noted before. Mother voiced understanding of information shared. Mother is planning on 24 hour discharge and will supplement after each . Mother is feeding as required and waking infant to feed if needed. Infant is currently meeting outcomes for weight, output, jaundice and feeding frequencies. Mother states she feels confident to continue putting infant to breast then supplementing at home. Reviewed transition to breast milk, signs of adequate intake, and engorgement/relief. Instructed to call ICP if intake/output less than required. Reviewed regular medications mother is taking. Information provided per Reyna. Reviewed community resources on the [facility] website and in the Mom/Baby guide. Information on outpatient services provided. Mother has no further questions at this time.
[2020-10-23] MEDS: WITCH HAZEL 40 PADS 1 PAD TOPICAL (20:13)
[2020-10-23] MEDS: TETANUS,DIPHTHERIA,AC PERTUSSIS ADULT (0.5 ML) BOOSTRIX IM (20:13)
[2020-10-23] MEDS: BENZOCAINE 20% AER SPR (*SP) 56 GM CAN 1 SPRAY TOPICAL (20:13)
[2020-10-23 20:37] VITALS: BP 105/58; PULSE 76; RESP 14; TEMP 36.4; O2SAT 98
--- NOTE | 2020-10-25 06:33 | PM.OBDSVD ---
DS: Admitting Diagnosis Admitting Diagnosis Admitting Diagnosis: induction of labor gestational diabetes DS: Discharge Diagnosis Discharge Diagnosis (1) Status post vaginal delivery: Status: Acute (2) Gestational diabetes mellitus (GDM) affecting second : Code(s): O24.419 - Gestational diabetes mellitus in , unspecified control Status: Acute (3) Second degree perineal laceration during delivery: Code(s): O70.1 - Second degree perineal laceration during delivery Status: Acute OB - DS: Summary OB Procedures : NST and Ultrasound OB Procedures Intrapartum: Spontaneous Vag Delivery OB Procedures: : None Peripartum Data Infant Delivery Method: Natural Vaginal Laceration Description: Perineal - 2nd Degree complications: none 1: Gender: Female Disposition of : home Status at Discharge Functional status at discharge: independent ambulation Overall status at discharge: patient is back to baseline Time Spent with Patient Time attestation: Total time spent providing and/or coordinating discharge services: Exam Const: General: cooperative, healthy appearing, comfortable and no acute distress Resp: Effort & Inspection: normal respiratory effort and able to speak in complete sentences Auscultation: clear to auscultation bilaterally Cardio: Rate: regular rate GI: Inspection: normal to inspection and non-distended GI Palp: No abdominal tenderness and Yes Soft to palpation Auscultation: normal bowel sounds : Other: fundus firm below umbilicus Skin: General skin exam: normal color Neuro: General: patient oriented x3 Extrem: General: normal to inspection Psych: Appearance: grossly normal Affect: normal affect Attitude: cooperative DS: Data Data Completed and Pending Pending studies at discharge: Pending at discharge 10/22/20 18:01 Surgical [PTH] Routine Discharge Plan Discharge Attending physician on discharge: Regla Chambers Discharging Clinician: Regla Chambers Anticipated Discharge Date/Time: 10/23/20 19:00 Patient Disposition: Home, Self-Care Activity: pelvic rest Diet: regular Discharge Instructions: Education: Mom and Baby Guide Given to: Mother Follow-Up: Call your delivering provider's office for an appointment to be seen in: 3 Weeks Mom and baby should come to the [facility] for the follow-up appointment. Appointment Date/Time: October at 11:00 am Call [phone] if you are unable to keep your appointment time. BREAST CARE: * Wear a snug supportive bra. * For engorgement discomfort: Breast Feeding: * Apply warm moist washcloths * Express milk as needed to relieve engorgement * Wear loose clothing Bottle Feeding: * May apply ice packs * For sore nipples: * Identify correct latch-on * Apply warm moist washcloths before and after nursing * Air dry nipples after nursing * May apply Lansinoh cream to nipples EPISIOTOMY/PERINEAL CARE: * Until bleeding stops, use your boni bottle after urinating * Change your pad frequently throughout the day * You may take sitz baths several times a day (fill your bathtub with warm water and soak for 20 minutes.) Do NOT bathe in the water * No tub baths until seen by your physician - You may shower ACTIVITY: * Rest as much as possible. * Do not exercise or lift anything heavier than your baby (such as laundry or other children.) * Avoid stairs or driving as much as possible. * Do not put anything into the vagina. No douching, tampons, or sexual activity until seen by physician. NOTIFY PHYSICIAN IF YOU HAVE ANY QUESTIONS OR IF ANY OF THE FOLLOWING SYMPTOMS OCCUR: * If your episiotomy or incision becomes red, swollen, or more painful than what you have experienced in the hospital. *
[2020-10-25 11:03] VITALS: BP 113/80; PULSE 74; RESP 20; TEMP 36.7; O2SAT 100
== END 2020-10-23 21:17 | disposition home or self-care (01) | DRG 560 ==
LOC: ANHOB2 10-23 12:59 → ANHLDR 10-24 10:16 → ANHOB2 10-24 10:16
PROVIDERS: Obstetrics & Gynecology; Admitting Provider Obstetrics & Gynecology; Visit Provider Obstetrics & Gynecology
DX: O24.424 Gestational diabetes mellitus in childbirth, insulin controlled (principal); O62.3 Precipitate labor; O70.1 Second degree perineal laceration during delivery; O76 Abnormality in fetal heart rate and rhythm complicating labor and delivery; Z3A.39 39 weeks gestation of pregnancy; Z37.0 Single live birth
CPT/HCPCS: 36415; 82948; 85014; 85018; 85025; 86592; 86850; 86900; 86901; 88307; 90715; A9270; J2370; J2590; J2795; J7120

== ENCOUNTER 2021-08-24 21:41 | Emergency (ER) | payer OTHER, SELFPAY ==
[2021-08-24 21:43] VITALS: BP 123/77; PULSE 97; RESP 17; TEMP 36.6; O2SAT 98
[2021-08-24 21:50] VITALS: O2SAT 100
[2021-08-24 22:00] VITALS: O2SAT 100
[2021-08-24 22:01] VITALS: BP 113/77; O2SAT 100
--- NOTE | 2021-08-24 22:15 | ED.URI ---
HPI - URI/Sore Throat General Chief Complaint: Upper Respiratory Infection Stated Complaint: sore throat Time Seen by Provider: 08/24/21 21:47 History of Present Illness HPI Narrative: 25-year-old female presents the emergency room with acute onset of sinus congestion, postnasal drip, rhinorrhea, frequently clearing her throat, green drainage, and productive cough. Patient has been afebrile. Patient states that she has been swallowing her drainage which is causing her to be nauseated and has thrown up twice. Patient denies headache, abdominal pain, or fever Related Data Allergies Allergy/AdvReac Type Severity Reaction Status Date / Time No Known Allergies Allergy Mild Verified 08/24/21 21:42 Review of Systems Review of Systems: CONSTITUTIONAL: Denies fever, chills, or sweats. EYES: Denies visual changes, redness, or discharge. ENT: Reports rhinorrhea, congestion, sore throat, CARDIOVASCULAR: Denies chest pain, palpitations, or edema. RESPIRATORY: Reports cough GASTROINTESTINAL: Denies abdominal pain, nausea, vomiting, or diarrhea. GENITOURINARY: Denies dysuria or hematuria. SKIN: Denies rash or itching. MUSCULOSKELETAL: Denies back pain, joint pain, or myalgia. NEUROLOGIC: Denies headache, numbness, dizziness, or weakness. PSYCHIATRIC: Denies anxiety or depression. PMFSH Past Medical History Medical History No significant medical problems Surgical History Surgical History History of tonsillectomy Family History Family History Other No pertinent family history Social History Social History Smoking status: Never smoker Second hand tobacco smoke exposure: Yes Alcohol intake: former Substance use: never Gender identity (if verbalized by the patient): Female Spiritual care concerns: No Exam Narrative: GENERAL: Well-appearing, well-nourished, and in no acute distress. HEAD: Normocephalic, atraumatic. EYES: PERRLA and EOMI. ENT: Thick drainage. Mucous membranes moist. Bilateral TMs pearly mcneal nonbulging NECK: No adenopathy or masses. CHEST: Clear to auscultation. No respiratory distress. No wheezes rales or rhonchi HEART: Regular rate and rhythm. No murmur heard. Normal peripheral pulses. ABDOMEN: Soft, nontender, nondistended, normal active bowel sounds. EXTREMITIES: Normal range of motion. No edema. SKIN: Warm, dry, no rash. NEURO: No focal deficits. Alert and oriented x3. PSYCH: Normal mood and affect. Course Vital Signs Vital signs: Vital Signs Temperature 36.6 C 08/24/21 21:43 Pulse Rate 97 08/24/21 21:43 Respiratory Rate 17 08/24/21 21:43 Blood Pressure 123/77 08/24/21 21:43 Pulse Oximetry 98 08/24/21 21:43 Temperature 36.6 C 08/24/21 21:43 Pulse Rate 97 08/24/21 21:43 Respiratory Rate 17 08/24/21 21:43 Blood Pressure 123/77 08/24/21 21:43 Pulse Oximetry 100 08/24/21 21:50 Discharge Plan Discharge Clinical Impression: Acute nasopharyngitis (common cold) Patient Disposition: Home, Self-Care Condition: Stable Instructions: Antibiotic Form Prescriptions: New pseudoephedrine HCl [Sudafed] 30 mg tablet 30 mg PO Q4-6H PRN (Reason: nasal congestion) Qty: 20 RF: 0 Follow-up/Referrals: PHYSICIAN NOT ON STAFF,NONSTAFF [Primary Care Provider] - PHYSICIAN,CHANGE DIRECTOR [Non-Staff] - Time of Disposition: 22:19
== END 2021-08-24 22:48 | disposition home or self-care (01) ==
PROVIDERS: Emergency Provider Nurse Practitioner Family
DX: J00 Acute nasopharyngitis [common cold] (principal)
CPT/HCPCS: 96372; 99283; J1100